=== PATIENT | female | born 1940 | race Caucasian/White ===

== ENCOUNTER 2024-10-11 13:09 | Emergency (ER) | payer MEDICARE ==
[2024-10-11] MEDS ORDERED: Acetaminophen 500 MG TAB ONE (16:29)
== END 2024-10-11 16:43 | disposition home or self-care (01) ==
LOC: ERS 13:09
DX: S01.511A Laceration without foreign body of lip, initial encounter (principal); I10 Essential (primary) hypertension; Z87.891 Personal history of nicotine dependence; W01.0XXA Fall on same level from slipping, tripping and stumbling without subsequent striking against object, initial encounter
CPT/HCPCS: 12011; 70450; 70486; 72125